=== PATIENT | male | born 1945 | race Caucasian/White ===

== ENCOUNTER 2019-08-28 10:34 | Inpatient (IN) | payer OTHER ==
[~2019-08-28] VITALS: Ht 162.6 cm; Wt 63.5 kg
[2019-08-28 11:31] LABS: microscopic required? NO
[2019-08-28 11:48] LABS: BASOPHIL % 0.6 % (0-2); PLATELET COUNT 300 x10^3mcL (130-400)
[2019-08-28 11:51] LABS: urine erythrocyte NEGATIVE (NEGATIVE)
[2019-08-28 11:56] LABS: RED CELL DISTRIBUTION WIDTH 16.2 % (11.5-14.5)
[2019-08-28 11:57] LABS: ALKALINE PHOSPHATASE 96 U/L (46-116); ALT/SGPT 24 U/L (16-63); AST/SGOT 17 U/L (15-37); CALCIUM 7.8 mg/dL (8.5-10.1); CHLORIDE SERUM 96 mmol/L (98-107); GLUCOSE SERUM 90 mg/dL (74-106); SODIUM SERUM 133 mmol/L (136-145); T4(THYROXINE) 5.4 ug/dL (4.7-13.3)
[2019-08-28 12:03] LABS: ALBUMIN 1.9 g/dL (3.4-5.0); POTASSIUM SERUM 2.7 mmol/L (3.5-5.1); TOTAL PROTEIN, SERUM 5.3 g/dL (6.4-8.2)
[2019-08-28 13:44] LABS: MAGNESIUM 1.8 mg/dL (1.8-2.4)
[2019-08-28 13:59] LABS: CHOLESTEROL/HDL RATIO 1.7
[2019-08-28] MEDS ORDERED: LOPERAMIDE HCL2 M1 PO (14:50)
[2019-08-28] MEDS ORDERED: FLOMAX0.4 MG PO (14:52)
[2019-08-28] MEDS ORDERED: SYN2 PO (14:52)
[2019-08-28] MEDS ORDERED: PREDNICARBATE TP (14:52)
[2019-08-28] MEDS ORDERED: [UNRECOGNIZED DRUG - OTHER] IM (14:53)
[2019-08-28] MEDS ORDERED: ATORVASTATIN CA10 M1 PO (14:53)
[2019-08-28] MEDS ORDERED: AMLODIPINE-OLM1 EAC1 PO (14:53)
[2019-08-28 15:15] VITALS: BP 101/49
[2019-08-28 16:02] VITALS: BP 91/60
[2019-08-28 16:40] LABS: AMPHETAMINE QUAL UR NONE DETECTED (See below)
[2019-08-28] MEDS ORDERED: ASPIRIN FOR CHI81 M1 PO (17:11)
[2019-08-28] MEDS ORDERED: CYPROHEPTAD2 MG/5 M1 PO (17:13)
[2019-08-28] MEDS ORDERED: DELZICOL400 M2 PO (17:14)
[2019-08-28] MEDS ORDERED: NATURE'S BLEND F1 MG PO (17:15)
[2019-08-28] MEDS ORDERED: PREDNISONE5 MG PO (17:16)
[2019-08-28] MEDS ORDERED: ZYTIGA250 MG PO (17:17)
[2019-08-28] MEDS ORDERED: SPIRIVA18 MC1 IH (17:19)
[2019-08-28 17:35] LABS: MAGNESIUM 1.8 mg/dL (1.8-2.4)
[2019-08-28 21:48] VITALS: BP 97/57
[2019-08-28 22:30] VITALS: BP 124/68
[2019-08-29] VITALS (7 sets, daily range): BP systolic 99–125; BP diastolic 48–65
[2019-08-29 07:01] LABS: CARBON DIOXIDE 27.8 mmol/L (21-32); CHLORIDE SERUM 103 mmol/L (98-107); CREATININE SERUM 0.8 mg/dL (0.7-1.3); GLUCOSE SERUM 123 mg/dL (74-106); POTASSIUM SERUM 4.1 mmol/L (3.5-5.1); SODIUM SERUM 135 mmol/L (136-145)
[2019-08-29 07:31] LABS: BASOPHIL % 0.1 % (0-2); PLATELET COUNT 249 x10^3mcL (130-400)
[2019-08-29 09:31] LABS: RED CELL DISTRIBUTION WIDTH 17.7 % (11.5-14.5)
[2019-08-30 05:22] VITALS: BP 124/64
[2019-08-30 06:53] LABS: BASOPHIL % 0.1 % (0-2); PLATELET COUNT 231 x10^3mcL (130-400)
[2019-08-30 06:58] LABS: RED CELL DISTRIBUTION WIDTH 17.9 % (11.5-14.5)
[2019-08-30 07:43] LABS: CARBON DIOXIDE 28 mmol/L (21-32); CHLORIDE SERUM 102 mmol/L (98-107); GLUCOSE SERUM 116 mg/dL (74-106); POTASSIUM SERUM 4.6 mmol/L (3.5-5.1); SODIUM SERUM 135 mmol/L (136-145)
[2019-08-30 07:44] LABS: ALBUMIN 2.5 g/dL (3.4-5.0); ALT/SGPT 29 U/L (16-63); AST/SGOT 25 U/L (15-37); BILIRUBIN TOTAL 0.8 mg/dL (0.20-1.00); CALCIUM 7.9 mg/dL (8.5-10.1); CREATININE SERUM 0.9 mg/dL (0.7-1.3); TOTAL PROTEIN, SERUM 5.3 g/dL (6.4-8.2)
[2019-08-30 07:45] LABS: ALKALINE PHOSPHATASE 74 U/L (46-116)
[2019-08-30 08:39] VITALS: BP 141/73
[2019-08-30 12:54] VITALS: BP 127/65
[2019-08-30 13:19] VITALS: Ht 162.6 cm; Wt 63.5 kg
[2019-08-30 14:39] VITALS: BP 127/65
== END 2019-08-30 15:46 | disposition other institution (70) | DRG 189 ==
LOC: ED 10:34 → IC 12:17 → DU 12:17 → IC 16:58 → DU 21:57
PROVIDERS: Emergency Medicine; Internal Medicine Cardiovascular Disease; Internal Medicine Gastroenterology; ADMIT Internal Medicine
PROC: 5A2204Z Restoration of Cardiac Rhythm, Single (ICD-10-PCS; principal; 2019-08-28)
PROC: 30233N1 Transfusion of Nonautologous Red Blood Cells into Peripheral Vein, Percutaneous Approach (ICD-10-PCS; 2019-08-29)
DX: J96.21 Acute and chronic respiratory failure with hypoxia (principal); J44.1 Chronic obstructive pulmonary disease with (acute) exacerbation; E87.2 Acidosis; K51.90 Ulcerative colitis, unspecified, without complications; I48.91 Unspecified atrial fibrillation; K52.9 Noninfective gastroenteritis and colitis, unspecified; I25.10 Atherosclerotic heart disease of native coronary artery without angina pectoris; I95.9 Hypotension, unspecified; D64.9 Anemia, unspecified; I50.9 Heart failure, unspecified; I11.0 Hypertensive heart disease with heart failure; M34.9 Systemic sclerosis, unspecified; E87.6 Hypokalemia; E03.9 Hypothyroidism, unspecified; N40.0 Benign prostatic hyperplasia without lower urinary tract symptoms; Z87.891 Personal history of nicotine dependence; Z85.46 Personal history of malignant neoplasm of prostate; Z88.1 Allergy status to other antibiotic agents; Z88.2 Allergy status to sulfonamides
CPT/HCPCS: 36600; 83880; 87804; 94150; G0378; J1956; J2250; J2916; J2930; J3010; J3475; J3480; J3490; J7030; J7040; J7050; J7512; J7620; J7626; P9016; P9047; Q0092; Q9967

== ENCOUNTER → 2019-10-09 | Outpatient (CLI) | payer OTHER ==
[~2019-10-09] MED LIST: AMLODIPINE-OLM1 EAC1 PO; ASPIRIN FOR CHI81 M1 PO; ATORVASTATIN CA10 M1 PO; CYPROHEPTAD2 MG/5 M1 PO; DELZICOL400 M2 PO; FLOMAX0.4 MG PO; LOPERAMIDE HCL2 M1 PO; NATURE'S BLEND F1 MG PO; PREDNICARBATE TP; PREDNISONE5 MG PO; SPIRIVA18 MC1 IH; SYN2 PO; ZYTIGA250 MG PO; [UNRECOGNIZED DRUG - OTHER] IM
== END | disposition home or self-care (01) ==
LOC: CA 07:25
DX: J44.9 Chronic obstructive pulmonary disease, unspecified (principal)
CPT/HCPCS: 36600